=== PATIENT | female | born 1970 | race Caucasian/White ===

== ENCOUNTER 2024-12-02 12:18 | Emergency (ER) | payer OTHER ==
[~2024-12-02] VITALS: Ht 177.8 cm; Wt 76.9 kg
--- NOTE | 2024-12-02 12:54 | ED.PDOC ---
GI ASSESSMENT HPI Comments 54y F who presents to the ED for chief complaint of abdominal pain. - pt states she has been having RLQ abdominal pain radiating to the lower back for the past 1x week - pt states she had tele-visit with PCP yesterday and given Keflex prescription for UTI - pt states she has been having exacerbation of her pain with noted pain radiating to the R lower pelvis area with pressure like pain and came to the ED for further evaluation - pt has been having associated urinary urgency but otherwise denies any other symptoms - pt otherwise denies any other symptoms at this time past medical history: anxiety Past surgical history: cholecystectomy, hysterectomy, allergies: denies medications: xanax social history: denies tobacco use, endorses ETOH use, denies drug use HPI: Poor Historian. Past Medical History: Past Surgical History: REVIEW OF SYSTEMS: CONSTITUTIONAL: Denies acute: fever, diaphoresis, chills, generalized weakness. HEAD: Denies acute: headache, photophobia Eyes: Denies acute: Double vision, vision loss, eye pain, eye discharge. EARS: Denies acute: tinnitus, hearing loss, ear discharge, ear pain, THROAT: Denies acute: sore throat, swelling, difficulty swallowing , pain with swallowing, change in voice. NECK: Denies acute: neck pain, neck swelling, stiff neck. HEART: Denies acute : chest pain, palpitations, LUNGS: Denies acute: SOB, wheezing, cough, hemoptysis ABDOMEN: Denies acute: Nausea, Vomiting, diarrhea, melena , hematemesis, hematochezia SKIN: Denies acute: rash, redness, lesions, itchiness. EXTREMITIES: Denies acute: calf pain, numbness, tingling, weakness, denies pain in extremity. Neuro: Denies acute: focal neurological deficit, motor or sensory focal neurological deficit, tremors, seizure like activity, confusion, dizziness, change in mental status, loss of bowel or bladder function, cauda equina like symptoms. : Denies acute: dysuria, hematuria, flank pain, increase in urinary frequency. PSYCH: Denies acute: hallucination, suicidal ideation, homicidal ideation. FEMALE: Denies acute: abnormal vaginal bleeding, foul odor, unusual discharge. PHYSICAL EXAM: General: ----[id number]-[id number]----acute distress, awake and alert. Head: normocephalic, atraumatic. Neck: supple, trachea is midline, no swelling. Throat: Normal phonation. Eyes:, no erythema, no purulent discharge, no proptosis, no icterus. Heart: regular rate, regular rhythm, no significant murmur appreciated. Lungs: no apparent respiratory distress, Able to speak in full sentences. No wheezing, no rhonchi, no crackles. No stridors Clear to auscultation bilaterally. Abdomen: Right lower quadrant tender to palpation, non distended, soft, no guarding, no rebound, + bowel sounds. Neuro: Awake, Alert, oriented to name, self, situation, follows commands GCS=15. Speech is normal. Skin: no petechia, no purpura, no cyanosis, non-pale, not jaundice. Lower extremities: --no - Pitting edema no deformity, no focal swelling, no calf TTP. Makes eye contact. moves all four extremities. Face: no apparent facial droop. No CVA tenderness to percussion bilaterally. Ambulating in the ED independently. ED COURSE: DISCLAIMER: This medical document was created using an electronic medical record system with voice recognition software and computerized dictation system. Although this document has been carefully reviewed, there might still be some phonetic and typ ographical errors. Occasional wrong-word or "sound-alike" substitutions may have occurred due to the inherent limitations of voice recognition software. These areas are purely typographical due to imperfections of the software programs and do not reflect any compromise in the patient's medical care. Please read the chart carefully and recognize, using context, where these substitutions have occurred. Chief Complaint: Abdominal Pain Time Seen by MD: 12:53 Reviewed Notes: Medications, Allergies Allergies: Coded Allergies: Sulfa Antibiotics (Verified Allergy, Unknown, 12/02/24) Information Source: Patient Mode of Arrival: Ambulatory Was a procedure done? Was a procedure done?: No GI differential Dx Differential Diagnosis: Other (DDX include Diverticulitis, colitis, gastroenteritis, acute abdomen, SBO, enteritis, constipation, volvulus, appendicitis, Gallbladder disease, choledocolithiasis, ascending cholangitis, pancreatitis, intraAbdominal mass/neoplasm, hepatitis, UTI, pylonephritis, kidney stone, aneurysm, dissection, Inflammatory bowel disease, gastroparesis, ischemic bowel, ovarian torsion, ovarian cyst/mass, tubo-ovarian abscess, , ectopic , PID, STD.) X-Ray, Labs, Meds, VS Vital Signs Date Time Temp Pulse Resp B/P (MAP) Pulse Ox O2 Delivery O2 Flow Rate FiO2 12/02/24 18:19 97.7 76 18 136/88 (104) 98 97.7 12/02/24 17:09 97.8 73 18 160/86 (110) 99 97.8 12/02/24 16:18 122/83 12/02/24 16:07 97.9 71 17 122/83 (96) 97 97.9 12/02/24 14:44 79 20 98 Room Air* 0 21 12/02/24 14:37 139/83 12/02/24 13:33 97.7 90 20 168/102 (124) 96 97.7 12/02/24 13:33 80 20 96 Room Air 12/02/24 12:39 98.0 84 17 153/114 (127) 96 98.0 Lab Test 12/02/24 13:06 12/02/24 12:29 Range/Units White Blood Count 10.5 4.4-10.8 10^3/uL Red Blood Count 4.70 4.0-5.20 10^6/uL Hemoglobin 14.7 12.2-16.2 g/dL Hematocrit 42.8 36.0-46.0 % Mean Corpuscular Volume 91.2 80.0-100.0 fL Mean Corpuscular Hemoglobin 31.3 28.0-32.0 pg Mean Corpuscular Hemoglobin Concent 34.4 32.0-36.0 g/dL Red Cell Distribution Width 13.0 11.8-14.3 % Platelet Count 289 140-450 10^3/uL Mean Platelet Volume 8.5 6.9-10.8 fL Neutrophils (%) (Auto) 82.2 H 37.0-80.0 % Lymphocytes (%) (Auto) 13.0 10.0-50.0 % Monocytes (%) (Auto) 4.3 0.0-12.0 % Eosinophils (%) (Auto) 0.1 0.0-7.0 % Basophils (%) (Auto) 0.4 0.0-2.0 % Neutrophils # (Auto) 8.6 1.6-8.6 10 ^3/uL Lymphocytes # (Auto) 1.4 0.4-5.4 10 ^3/uL Monocytes # (Auto) 0.5 0-1.3 10 ^3/uL Eosinophils # (Auto) 0 0-0.8 10 ^3/uL Basophils # (Auto) 0 0-0.2 10 ^3/uL Nucleated Red Blood Cells 0.0 % Sodium Level 140 136-145 mmol/L Potassium Level 3.9 3.5-5.1 mmol/L Chloride Level 108 H 98-107 mmol/L Carbon Dioxide Level 21 20-31 mmol/L Anion Gap 11 5-15 Blood Urea Nitrogen 13 9-23 mg/dL Creatinine 0.97 0.550-1.02 mg/dL Glomerular Filtration Rate Calc 69 >90 mL/min BUN/Creatinine Ratio 13.4 10.0-20.0 Serum Glucose 96 74-106 mg/dL Lactic Acid Level 1.0 0.4-2.0 mmol/L Calcium Level 10.4 8.7-10.4 mg/dL Total Bilirubin 0.9 0.2-1.0 mg/dL Aspartate Amino Transferase (AST) 25 <34 U/L Alanine Aminotransferase (ALT) 24 7-40 U/L Alkaline Phosphatase 97 46-116 U/L Total Protein 7.3 5.7-8.2 g/dL Albumin 4.8 3.2-4.8 g/dL Urine Color Yellow Yellow Urine Clarity Clear Clear Urine pH 5.5 5.0-9.0 Urine Specific Miller 1.024 1.001-1.035 Urine Protein Negative Negative Urine Ketones Negative Negative Urine Blood Trace H Negative /uL Urine Nitrite Negative Negative Urine Bilirubin Negative Negative Urine Urobilinogen Normal Negative mg/dL Urine Leukocyte Esterase Negative Negative /uL Urine RBC 4 0 - 4 /hpf Urine Microscopic WBC 2 0-5 /HPF Urine Squamous Epithelial Cells Few <5 /hpf Urine Bacteria Few H None Seen /hpf Urine Mucus Few None Seen Urine Glucose Normal Normal mg/dL [facility] [address] [facility] [address] Ph: [phone] DIAGNOSTIC IMAGING Diagnostic Imaging Report : [id number] Signed PATIENT: JON CURTISUDAY AACCT: [id number] UNIT: [id number] : 1970 LOC: ER ROOM / BED: / AGE / SEX: 54 / F ADM STATUS: REG ER SERVICE [id number] ORDERING PHYSICIAN: MARCIO GUZMAN DO PROCEDURE(s): ABPL - CT AB PEL WO CON-NO ORAL OR IV REASON: RLQ PAIN ORDER NUMBER(s): [id number], ACCESSION NUMBER(s): [id number] Indication: RLQ PAIN Technique: CT axial images of the abdomen and pelvis are obtained without contrast. Coronal and sagittal reformats were obtained. Radiation Dose Information: CTDI volume is 12.25 mGy. Dose-length product is 672.12 mGy*cm Comparison: None FINDINGS: There is limited interpretation of the abdomen and pelvis without administration of intravenous contrast. Lung bases demonstrate no pleural effusion. Bilateral breast implants. Adrenal glands, spleen, pancreas unremarkable in shape. Liver unremarkable in shape. Cholecystectomy. Moderate to severe right hydroureteronephrosis secondary to a calculus at the right ureterovesicular junction which measures 4 mm. Right perinephric edema and stranding. Left kidney demonstrates no hydronephrosis, nephrolithiasis. Stomach partially distended. Small bowel loops are normal in caliber. Colonic diverticular disease. Moderate volume stool within the colon. Normal appendix. Abdominal aortic atherosclerotic disease. Bladder is nondistended. No free pelvic fluid. No inguinal lymphadenopathy. Ymen-fl-htocooqt bilateral sacroiliac degenerative joint disease. Moderate thoracolumbar degenerative disc disease. 5 mm anterolisthesis of L4 upon L5. Moderate to advanced lumbar facet hypertrophic changes. IMPRESSION: Moderate to severe right hydroureteronephrosis secondary to a 4 mm calculus at the right ureterovesicular junction. Right perinephric edema / stranding may represent Resultant urinary tract infection/pyelonephritis. Colonic diverticular disease. Cholecystectomy. Other findings as described. ATED BY: IZABEL SUGGS MD DICTATED DATE/TIME: 12/02/241435 SIGNED BY: IZABEL SUGGS MD SIGNED DATE/TIME: 12/02/241435 CC: Time of 1ST Reevaluation: 15:48 (The case was discussed with the [place] admitting team (HPI, physical exam, labs and diagnostic tests that were available at the time of disposition, ED course, treatment plan) on the phone. They agreed to transfer the patient to their service by ALS for further evaluation and treatment. Dr. Sylvester Authorization number is--[id number]) Reevaluation 1ST: Unchanged Patient Education/Counseling: Diagnosis, Treatment Family Education/Counseling: No Family Present Comments Patient presented with the above HPI.---abdominal pain---workup was initiated. patient was found with the above mentioned diagnosis. the following medications were ordered: please refer to order lists of meds and tests obtained by myself Dr. Guzman. Patient ED course and VS have been stabilized. Patient has been reassessed in the ED and remained in a stable condition. Pertinent incidental findings were discussed with the patient and/or family. Patient/family voices understanding and is agreeable with plan. Patient has been observed in the ED adequate length of time to insure improvement/stability. Escalation of care considered: Consideration of escalation to observation or admission Patient was ADMITTED to the medicine team for further evaluation and treatment of their presentation. All the reports of any imaging studies that were ordered by myself were reviewed by myself. Departure 1 Departure Time of Disposition: 14:46 Impression: Primary Impression: Pyelonephritis Additional Impressions: Hydroureteronephrosis Obstructive nephropathy Kidney stone Disposition: ADMITTED INPATIENT Admit to: Tele Condition: Guarded Discharged With: Self Critical Care Note Critical Care Time?: Yes (45 min-critical care time only) I personally scribed for MARCIO GUZMAN DO ([email or web address]) on 12/02/24 at 12:54. Electronically submitted by Pratik Anthony ([email or web address]). I personally scribed for MARCIO GUZMAN DO ([email or web address]) on 12/02/24 at 21:38. Electronically submitted by Pratik Anthony ([email or web address]). MARCIO GUZMAN DO Dec 02, 2024 12:54
[2024-12-02 13:28] LABS: Basophils # (auto) 0 10 ^3/uL (0-0.2); Basophils % (auto) 0.4 % (0.0-2.0); Eosinophils # (auto) 0 10 ^3/uL (0-0.8); Eosinophils % (auto) 0.1 % (0.0-7.0); Hematocrit 42.8 % (36.0-46.0); Hemoglobin 14.7 g/dL (12.2-16.2); Lymphocytes # (auto) 1.4 10 ^3/uL (0.4-5.4); Mean Corpuscular Hemoglobin 31.3 pg (28.0-32.0); Mean Corpuscular Hgb Conc. 34.4 g/dL (32.0-36.0); Mean Corpuscular Volume 91.2 fL (80.0-100.0); Monocytes # (auto) 0.5 10 ^3/uL (0-1.3); Monocytes % (auto) 4.3 % (0.0-12.0); Neutrophils # (auto) 8.6 10 ^3/uL (1.6-8.6); Neutrophils % (auto) 82.2 % (37.0-80.0); Platelet Count (auto) 289 10^3/uL (140-450); White Blood Cell 10.5 10^3/uL (4.4-10.8)
[2024-12-02] MEDS: SODIUM CHLORIDE 0.9% 1,000 ML IV ONE (13:35)
[2024-12-02] MEDS: cefTRIAXone 1GM/50ML D5W 50 ML IV ONE (13:35)
[2024-12-02 13:43] LABS: Urine Bacteria FEW /hpf (None Seen); Urine Blood TRACE /uL (Negative); Urine Clarity Clear (Clear); Urine Color Yellow (Yellow); Urine Mucus FEW (None Seen); Urine Protein, UAD Negative (Negative); Urine Specific Gravity 1.024 (1.001-1.035); Urine Squamous Epithelial Cell FEW /hpf (<5); Urine Urobilinogen Normal (Negative); Urine WBC 2 /HPF (0-5); Urine pH 5.5 (5.0-9.0)
[2024-12-02 13:48] LABS: Alanine Aminotransferase 24 U/L (7-40); Albumin 4.8 g/dL (3.2-4.8); Alkaline Phosphatase 97 U/L (46-116); Anion Gap 11 (5-15); Aspartate Aminotransferase 25 U/L (<34); BUN/Creatinine Ratio 13.4 (10.0-20.0); Blood Urea Nitrogen 13 mg/dL (9-23); Calcium 10.4 mg/dL (8.7-10.4); Carbon Dioxide 21 mmol/L (20-31); Chloride 108 mmol/L (98-107); Glucose 96 mg/dL (74-106); Potassium 3.9 mmol/L (3.5-5.1); Sodium 140 mmol/L (136-145); Total Protein 7.3 g/dL (5.7-8.2)
[2024-12-02 13:49] LABS: Bilirubin, Total 0.9 mg/dL (0.2-1.0)
[2024-12-02] MEDS: fentaNYL CITRATE 100 MCG/2 ML VL IV ONE ×2 (14:37→16:18)
--- NOTE | 2024-12-02 14:38 | DVH ---
Indication: RLQ PAIN Technique: CT axial images of the abdomen and pelvis are obtained without contrast. Coronal and sagit karlee reformats were obtained. Radiation Dose Information: CTDI volume is 12.25 mGy. Dose-length product is 672.12 mGy*cm Comparison: None FINDINGS: There is limited interpretation of the abdomen and pelvis without administration of intravenous contr ast. Lung bases demonstrate no pleural effusion. Bilateral breast implants. Adrenal glands, spleen, pancreas unremarkable in shape. Liver unremarkable in shape. Cholecystectomy . Moderate to severe right hydroureteronephrosis secondary to a calculus at the right ureterovesicular junction which measures 4 mm. Right perinephric edema and stranding. Left kidney demonstrates no hydronephrosis, nephrolithiasis. Stomach partially distended. Small bowel loops are normal in caliber. Colonic diverticular disease. Moderate volume stool within the colon. Normal appendix. Abdominal aortic atherosclerotic disease. Bladder is nondistended. No free pelvic fluid. No inguinal lymphadenopathy. Kiwo-kk-gqtapbab bilateral sacroiliac degenerative joint disease. Moderate thoracolumbar degenerative disc disease. 5 mm anterolisthesis of L4 upon L5. Moderate to ad vanced lumbar facet hypertrophic changes. IMPRESSION: Moderate to severe right hydroureteronephrosis secondary to a 4 mm calculus at the right ureterovesic ular junction. Right perinephric edema / stranding may represent Resultant urinary tract infection/py elonephritis. Colonic diverticular disease. Cholecystectomy. Other findings as described.
[2024-12-02 14:44] VITALS: PULSE 79; RESP 20; O2SAT 98
[2024-12-02] MEDS: TAMSULOSIN HYDROCHLORIDE 0.4 MG CAP PO ONE (15:15)
[2024-12-02] MEDS ORDERED: SODIUM CHLORIDE 0.9% 1,000 ML IV ONE (15:45)
[2024-12-02] MEDS: ONDANSETRON HCL 4 MG/2 ML VIAL IV ONE (17:21)
[2024-12-02] MEDS: KETOROLAC TROMETH 30 MG/ML 1ML VIAL IV ONE (17:21)
[2024-12-02 18:19] VITALS: BP 136/88; PULSE 76; RESP 18; TEMP 97.7; O2SAT 98
== END 2024-12-02 18:29 | disposition short-term general hospital (02) ==
LOC: ER 12:18
DX: N12 Tubulo-interstitial nephritis, not specified as acute or chronic (principal); N13.30 Unspecified hydronephrosis; N13.8 Other obstructive and reflux uropathy; Z90.710 Acquired absence of both cervix and uterus; Z90.49 Acquired absence of other specified parts of digestive tract; Z88.2 Allergy status to sulfonamides
CPT/HCPCS: 36415; 74176; 80053; 81001; 83605; 85025; 96361; 96374; 96375; 96376; 99285; J1885; J2405; J3010; J7030